=== PATIENT | male | born 1980 | race Caucasian/White ===

== ENCOUNTER 2024-10-10 12:57 | Inpatient (IN) | payer BC, OTHER ==
[2024-10-10] MEDS ORDERED: Acetaminophen 650 MG Suppository PR PRN (17:28)
[2024-10-10] MEDS ORDERED: Acetaminophen 325 MG TAB PO PRN (17:28)
[2024-10-10] MEDS ORDERED: Nitroglycerin 0.4 MG TAB (25 Tab Bottle) SL PRN (17:29)
[2024-10-10] MEDS ORDERED: Communication Order-Pharmacy FS SCH (17:33)
[2024-10-10] MEDS ORDERED: Ondansetron ODT 4 MG TAB PO PRN (18:35)
[2024-10-10] MEDS ORDERED: Lorazepam 2 MG/ML VIAL IM PRN (18:35)
[2024-10-10] MEDS ORDERED: Lorazepam 1 MG TAB PO PRN (18:35)
[2024-10-10] MEDS ORDERED: Electrolyte Replacement Protocol FS SCH (18:45)
[2024-10-10 19:00] LABS: Hematocrit 43.8 % (42.0-52.0); Hemoglobin 15.6 g/dL (14.0-18.0); Platelet Count 212 10x3/uL (130-400)
[2024-10-10 19:19] LABS: Magnesium 1.9 mg/dL (1.6-2.6)
[2024-10-10 19:24] LABS: Acetaminophen Less than 10 mcg/mL (Less than 10); Alcohol Less than 10.0 mg/dL (Less than 10); Salicylate Less than 8.0 mg/dL (Less than 8.0)
[2024-10-10 19:33] LABS: Troponin I 16.829 ng/mL (< 0.028)
[2024-10-10 19:40] VITALS: BMI 36.0
[2024-10-10] MEDS: Magnesium 2 GM/50 ML(in water) 2 GM in Premix 1 BAG IVPB SCH (20:57)
[2024-10-10] MEDS: Nitroglycerin 2% Ointment 1 INCH/1 GM Packet TOP SCH (20:58)
[2024-10-10] MEDS: Thiamine HCl 200 MG/2 ML VIAL SLOW IVP SCH (20:59)
[2024-10-10] MEDS: Enoxaparin 120 MG/0.8 ML SYRINGE SC SCH (20:59)
[2024-10-10] MEDS: Famotidine 20 MG TAB PO SCH (20:59)
[2024-10-10 21:45] LABS: Amphetamine Not Detected (NotDetected); Benzodiazepine Screen Not Detected (NotDetected); Cocaine Metabolite Screen Not Detected (NotDetected); Methadone Not Detected (NotDetected); Methamphetamine Not Detected (NotDetected); Opiate Screen Not Detected (NotDetected); Phencyclidine (PCP) Not Detected (NotDetected); THC/Cannabinoid Screen Not Detected (NotDetected); Tricyclic Screen Not Detected (NotDetected)
[2024-10-10 21:46] LABS: Barbiturates Screen Not Detected (NotDetected); Oxycodone Screen Not Detected (NotDetected)
[2024-10-10 22:42] LABS: Critical Call Chem Troponin I RESULT DECREASING; Troponin I 10.079 ng/mL (< 0.028)
[2024-10-11 04:07] LABS: #Basophils 0.05 10x3/uL (0.0-0.2); %Basophils 0.6 % (0.0-1.0); %Eosinophils 4.8 % (0.0-10.0); %Lymphocytes 32.2 % (21.0-51.0); %Monocytes 9.3 % (0.0-10.0); %Neutrophils 52.7 % (42.0-75.0); Hematocrit 42.9 % (42.0-52.0); Hemoglobin 14.9 g/dL (14.0-18.0); Mean Corpuscular HGB CONC 34.7 g/dL (32.0-36.0); Mean Corpuscular Hemoglobin 30.7 pg (27.0-31.0); Mean Corpuscular Volume 88.5 fL (78.0-98.0); Mean Platelet Volume 9.9 fL (7.4-10.4); Platelet Count 191 10x3/uL (130-400); RBC Distribution Width 12.5 % (11.5-14.5); Red Blood Cell (RBC) Count 4.85 mill/uL (4.70-6.10)
[2024-10-11 04:32] LABS: Hemoglobin A1c 5.4 % (4.0-6.0)
[2024-10-11 04:34] LABS: Anion Gap 11 mmol/L (10-20); BUN (Urea Nitrogen) 12 mg/dL (8.9-20.6); Calc. Creatinine Clearance 178 mL/min (70-130); Calcium 8.5 mg/dL (7.8-10.44); Carbon Dioxide 27 mmol/L (22-29); Cardiac Risk 7.5 (Less than 4.5); Chloride 102 mmol/L (98-107); Cholesterol 218 mg/dl (< 200 Desired); Estimated GFR 110; Glucose 103 mg/dL (70-105); HDL Cholesterol 29 mg/dL (>60 Neg Risk); Potassium 4.1 mmol/L (3.5-5.1); Sodium 136 mmol/L (136-145); Triglycerides 416 mg/dL (Less than 150)
[2024-10-11 04:37] LABS: Critical Call Chem Troponin I RESULT DECREASING
[2024-10-11] MEDS ORDERED: Heparin 10,000 UNITS/ 10 ML VIAL ONE (07:31)
[2024-10-11] MEDS ORDERED: Verapamil 5 MG/2 ML VIAL ONE (07:31)
[2024-10-11] MEDS ORDERED: Lidocaine 1% (PF) 30 ML VIAL ONE (07:31)
[2024-10-11] MEDS ORDERED: Nitroglycerin 50 MG/250 ML BOT 250 ML ONE (07:32)
[2024-10-11] MEDS ORDERED: Communication Order-Pharmacy FS SCH (08:00)
[2024-10-11] MEDS: Folic Acid 1 MG TAB PO SCH (08:12)
[2024-10-11] MEDS: Sertraline 100 MG TAB PO SCH (08:12)
[2024-10-11] MEDS: Multivit, Therapeutic 1 TAB PO SCH (08:12)
[2024-10-11] MEDS: Aspirin Chewable 81 MG TAB PO SCH (08:12)
[2024-10-11] MEDS ORDERED: Midazolam HCl 2 mg/2 ml Vial ONE (08:31)
[2024-10-11] MEDS ORDERED: fentaNYL 50 mcg/mL 1 mL Vial ONE ×2 (08:31→08:58)
[2024-10-11] MEDS ORDERED: Iopamidol 370 76% 100 ML VIAL ONE (08:43)
[2024-10-11] MEDS ORDERED: Nitroglycerin 0.4 MG TAB (25 Tab Bottle) SL PRN (09:46)
[2024-10-11] MEDS ORDERED: Sodium Chloride 0.9% 200 ML IV PRN (09:46)
[2024-10-11] MEDS ORDERED: Acetaminophen/Codeine 30-300mg Tablet PO PRN ×2 (09:46)
[2024-10-11 10:29] LABS: Hematocrit 42.4 % (42.0-52.0); Platelet Count 181 10x3/uL (130-400)
[2024-10-11] MEDS: Metoprolol Tartrate 25 MG TAB PO SCH (11:04)
[2024-10-11] MEDS: Heparin 10,000 UNITS/ 10 ML VIAL SLOW IVP SCH (14:40)
[2024-10-11] MEDS: Heparin 25,000 units/D5W 500 ML IVPB SCH (14:41)
[2024-10-11] MEDS ORDERED: Lorazepam 1 MG TAB PO PRN (18:35)
[2024-10-11] MEDS: Atorvastatin Calcium 40 MG TAB PO SCH (20:21)
[2024-10-12 04:46] LABS: #Basophils 0.05 10x3/uL (0.0-0.2); %Basophils 0.7 % (0.0-1.0); %Eosinophils 5.2 % (0.0-10.0); %Lymphocytes 31.7 % (21.0-51.0); %Monocytes 8.9 % (0.0-10.0); %Neutrophils 53.2 % (42.0-75.0); Anion Gap 9 mmol/L (10-20); BUN (Urea Nitrogen) 10 mg/dL (8.9-20.6); Calc. Creatinine Clearance 196 mL/min (70-130); Calcium 8.5 mg/dL (7.8-10.44); Carbon Dioxide 26 mmol/L (22-29); Chloride 107 mmol/L (98-107); Estimated GFR 114; Glucose 94 mg/dL (70-105); Hematocrit 42.9 % (42.0-52.0); Hemoglobin 14.7 g/dL (14.0-18.0); Magnesium 2.2 mg/dL (1.6-2.6); Mean Corpuscular HGB CONC 34.3 g/dL (32.0-36.0); Mean Corpuscular Hemoglobin 30.6 pg (27.0-31.0); Mean Corpuscular Volume 89.2 fL (78.0-98.0); Phosphorus 2.5 mg/dL (2.3-4.7); Platelet Count 179 10x3/uL (130-400); Potassium 3.8 mmol/L (3.5-5.1); RBC Distribution Width 12.6 % (11.5-14.5); Red Blood Cell (RBC) Count 4.81 mill/uL (4.70-6.10); Sodium 138 mmol/L (136-145)
[2024-10-12] MEDS: Ezetimibe 10 MG TAB PO SCH (08:53)
[2024-10-12] MEDS ORDERED: Electrolyte Replacement Protocol FS PRN (11:15)
[2024-10-12] MEDS: Senokot 8.6 MG TAB PO SCH (17:57)
[2024-10-12] MEDS ORDERED: Lorazepam 1 MG TAB PO PRN (18:35)
[2024-10-12] MEDS: Ciprofloxacin 0.2% Otic (0.25ML CONTAINER) R EAR SCH (21:13)
[2024-10-13 04:35] LABS: #Basophils 0.05 10x3/uL (0.0-0.2); %Basophils 0.7 % (0.0-1.0); %Eosinophils 5.6 % (0.0-10.0); %Monocytes 10.1 % (0.0-10.0); %Neutrophils 47.3 % (42.0-75.0); Hematocrit 40.9 % (42.0-52.0); Hemoglobin 13.9 g/dL (14.0-18.0); Mean Corpuscular Hemoglobin 30.4 pg (27.0-31.0); Mean Corpuscular Volume 89.5 fL (78.0-98.0); Platelet Count 184 10x3/uL (130-400); RBC Distribution Width 12.3 % (11.5-14.5); Red Blood Cell (RBC) Count 4.57 mill/uL (4.70-6.10)
[2024-10-13 05:00] LABS: Anion Gap 12 mmol/L (10-20); BUN (Urea Nitrogen) 13 mg/dL (8.9-20.6); Calc. Creatinine Clearance 169 mL/min (70-130); Calcium 8.6 mg/dL (7.8-10.44); Carbon Dioxide 23 mmol/L (22-29); Chloride 107 mmol/L (98-107); Estimated GFR 107; Glucose 105 mg/dL (70-105); Phosphorus 4.2 mg/dL (2.3-4.7); Sodium 138 mmol/L (136-145)
[2024-10-13] MEDS ORDERED: Magnesium 2 GM/50 ML(in water) 2 GM in Premix 1 BAG IVPB SCH (08:00)
[2024-10-13] MEDS: guaiFENesin/DM ER PO SCH (09:22)
[2024-10-13 09:56] LABS: Hematocrit 41.2 % (42.0-52.0); Hemoglobin 14.5 g/dL (14.0-18.0); Platelet Count 183 10x3/uL (130-400)
[2024-10-13] MEDS: Thiamine 100 MG TAB PO SCH (21:31)
[2024-10-13] MEDS: Lorazepam 0.5 MG TAB PO PRN (21:31)
[2024-10-14 03:36] LABS: #Basophils 0.05 10x3/uL (0.0-0.2); %Basophils 0.7 % (0.0-1.0); %Eosinophils 4.3 % (0.0-10.0); %Lymphocytes 26.4 % (21.0-51.0); %Monocytes 9.1 % (0.0-10.0); %Neutrophils 59.2 % (42.0-75.0); Hematocrit 42.2 % (42.0-52.0); Hemoglobin 14.5 g/dL (14.0-18.0); Mean Corpuscular HGB CONC 34.4 g/dL (32.0-36.0); Mean Corpuscular Hemoglobin 30.8 pg (27.0-31.0); Mean Corpuscular Volume 89.6 fL (78.0-98.0); Mean Platelet Volume 9.9 fL (7.4-10.4); Platelet Count 181 10x3/uL (130-400); RBC Distribution Width 12.3 % (11.5-14.5); Red Blood Cell (RBC) Count 4.71 mill/uL (4.70-6.10)
[2024-10-14 03:52] LABS: Anion Gap 12 mmol/L (10-20); BUN (Urea Nitrogen) 11 mg/dL (8.9-20.6); Calc. Creatinine Clearance 170 mL/min (70-130); Calcium 8.9 mg/dL (7.8-10.44); Carbon Dioxide 26 mmol/L (22-29); Chloride 106 mmol/L (98-107); Estimated GFR 108; Glucose 98 mg/dL (70-105); Phosphorus 3.7 mg/dL (2.3-4.7); Potassium 4.1 mmol/L (3.5-5.1); Sodium 140 mmol/L (136-145)
[2024-10-14] MEDS ORDERED: Midazolam HCl 2 mg/2 ml Vial ONE ×4 (06:21→12:56)
[2024-10-14] MEDS ORDERED: Fentanyl 250 MCG/5 ML VIAL ONE ×2 (06:22→08:15)
[2024-10-14] MEDS ORDERED: Vecuronium 10 MG VIAL ONE ×2 (06:29→10:25)
[2024-10-14] MEDS ORDERED: Aminocaproic Acid 5 GM/20 ML VIAL ONE ×2 (06:29→07:47)
[2024-10-14] MEDS ORDERED: PROPOFOL 20 ML ONE (06:34)
[2024-10-14] MEDS ORDERED: Bupivacaine PF 0.5% 30 ML VIAL ONE (06:35)
[2024-10-14] MEDS ORDERED: EPINEPHrine 1 MG/ML VIAL ONE (06:35)
[2024-10-14] MEDS ORDERED: Albumin 5% 500 ML ONE (06:35)
[2024-10-14] MEDS ORDERED: PHENYLEPHRINE-NS 100 MCG/ML 10 ML SYRINGE ONE ×2 (06:35)
[2024-10-14] MEDS ORDERED: Papaverine 60 MG/2 ML VIAL ONE ×2 (06:52→07:47)
[2024-10-14] MEDS ORDERED: Heparin 10,000 UNITS/1 ML VIAL 30,000 UNITS in Sodium Chloride 0.9% 1,000 ML FS SCH (07:00)
[2024-10-14] MEDS ORDERED: Lidocaine 1% MPF 2 ML VIAL ONE (07:11)
[2024-10-14] MEDS ORDERED: Lidocaine 2% PF 100 mg/5 ml Syringe ONE (07:47)
[2024-10-14] MEDS ORDERED: Heparin 5,000 UNITS/ML VIAL ONE (07:47)
[2024-10-14] MEDS ORDERED: Potassium Chloride 60 mEq (30 mL) VIAL ONE (07:47)
[2024-10-14] MEDS ORDERED: Esmolol 100 MG/10 ML VIAL ONE (07:47)
[2024-10-14] MEDS ORDERED: Nitroglycerin 50 MG/250 ML BOT ONE (07:47)
[2024-10-14] MEDS ORDERED: Thrombin 5000 UNITS/5 ML VIAL ONE (07:47)
[2024-10-14] MEDS ORDERED: Magnesium 5 GM/10 ML VIAL ONE (07:47)
[2024-10-14] MEDS ORDERED: Mannitol 12.5 GM/50 ML ONE (07:47)
[2024-10-14] MEDS ORDERED: Vancomycin 1 GM VIAL ONE (07:47)
[2024-10-14] MEDS ORDERED: Cardioplegic Soln 1,000 ML BAG ONE (07:47)
[2024-10-14] MEDS ORDERED: Calcium Chloride 1 GM/10 ML Abboject SYRINGE ONE ×2 (07:47→11:36)
[2024-10-14] MEDS ORDERED: Heparin 30,000 units/30 ml VIAL ONE (07:47)
[2024-10-14] MEDS ORDERED: Sodium Bicarb 50 mEq/50 ML VIAL ONE (07:47)
[2024-10-14] MEDS ORDERED: Protamine Sulfate 250 MG/25 ML VIAL ONE (07:47)
[2024-10-14] MEDS ORDERED: CEFAZOLIN 1 GM VIAL ONE (08:00)
[2024-10-14] MEDS ORDERED: ePHEDrine Sulfate 50 MG/10 ML VIAL ONE (08:32)
[2024-10-14] MEDS: Magnesium 2 GM/50 ML(in water) 2 GM in Premix 1 BAG IVPB SCH ×2 (10:37→14:31)
[2024-10-14] MEDS ORDERED: EPINEPHrine 1 MG/10 ML Abboject SYRINGE ONE (11:36)
[2024-10-14] MEDS ORDERED: Nitroglycerin 50 MG/250 ML BOT 250 ML IVPB PRN (13:27)
[2024-10-14] MEDS ORDERED: Promethazine HCl 25 MG/ML VIAL IM PRN (13:27)
[2024-10-14] MEDS ORDERED: Bisacodyl 5 MG TAB PO PRN (13:27)
[2024-10-14] MEDS ORDERED: Guaifenesin DM 100-10/5 ML UDCUP PO PRN (13:27)
[2024-10-14] MEDS ORDERED: hydrALAZINE 20 MG/ML VIAL SLOW IVP PRN (13:27)
[2024-10-14] MEDS ORDERED: niCARdipine 25 MG in Sodium Chloride 0.9% 250 ML 250 ML IVPB PRN (13:27)
[2024-10-14] MEDS ORDERED: Mag-Al 1200 mg/1200 mg/30 ML UDCUP PO PRN (13:27)
[2024-10-14] MEDS ORDERED: Phenylephrine 40 MG/NS 250 ML 250 ML IVPB PRN (13:27)
[2024-10-14] MEDS ORDERED: fentaNYL 50 mcg/mL 1 mL Vial SLOW IVP PRN (13:27)
[2024-10-14] MEDS ORDERED: Albumin 5% 12.5 GM (250 mL) BOT IVPB PRN ×2 (13:27)
[2024-10-14] MEDS ORDERED: Bisacodyl 10 MG SUPP PR PRN (13:27)
[2024-10-14] MEDS ORDERED: Electrolyte Replacement Protocol 1 EACH FS SCH (13:30)
[2024-10-14 14:04] LABS: Actual Bicarbonate (HCO3a) 21.5 mEq/L (22-28); Base Excess (BEa) -4.6 mEq/L (-2.0 to +3.0); CO2 Tension 43.3 mmHg (35.0-45.0); Calcium, Ionized (arterial) 1.21 mmol/L (1.12-1.30); Hematocrit-ABG 44 % (42.0-52.0); Hemoglobin (Hb) 14.9 g/dL (14.0-18.0); Potassium - ABG Lab 4.72 mmol/L (3.70-5.30); pH, Arterial 7.313 (7.35-7.45)
[2024-10-14 14:06] LABS: ALV-art Gradient 261.675 mmHg (0-20); Puncture Site Arterial Line
[2024-10-14] MEDS: fentaNYL 50 mcg/mL 1 mL Vial SLOW IVP PRN (14:15)
[2024-10-14] MEDS: Insulin Regular, Human 100 UNIT/ML 10 ML VIAL SC PRN (14:16)
[2024-10-14 14:28] LABS: #Basophils 0.06 10x3/uL (0.0-0.2); %Basophils 0.4 % (0.0-1.0); %Eosinophils 0.2 % (0.0-10.0); %Lymphocytes 7.9 % (21.0-51.0); %Monocytes 7.9 % (0.0-10.0); %Neutrophils 82.4 % (42.0-75.0); Hematocrit 41.2 % (42.0-52.0); Hemoglobin 14.3 g/dL (14.0-18.0); Mean Corpuscular HGB CONC 34.7 g/dL (32.0-36.0); Mean Corpuscular Hemoglobin 30.8 pg (27.0-31.0); Mean Corpuscular Volume 88.8 fL (78.0-98.0); Mean Platelet Volume 9.9 fL (7.4-10.4); Platelet Count 135 10x3/uL (130-400); RBC Distribution Width 12.5 % (11.5-14.5); Red Blood Cell (RBC) Count 4.64 mill/uL (4.70-6.10)
[2024-10-14] MEDS ORDERED: Dextrose 5% in Water 1,000 ML IV PRN (14:30)
[2024-10-14] MEDS ORDERED: Dextrose 50% Abboject 50 ML SYRINGE SLOW IVP PRN (14:30)
[2024-10-14] MEDS ORDERED: INSULIN REGULAR IN 0.9 % NACL 100 UNITS in Premix 1 BAG IVPB SCH (14:30)
[2024-10-14] MEDS ORDERED: Electrolyte Replacement Protocol FS PRN (14:30)
[2024-10-14] MEDS ORDERED: Glucagon 1 MG/ML KIT SC PRN (14:30)
[2024-10-14] MEDS: fentaNYL 50 mcg/mL 1 mL Vial ONE (14:31)
[2024-10-14] MEDS: Insulin Regular, Human 100 UNIT/ML 10 ML VIAL ONE (14:31)
[2024-10-14] MEDS: CEFAZOLIN 2 GM in Sodium Chloride 0.9% 100 ML IVPB SCH (14:32)
[2024-10-14] MEDS: Post-Op Insulin Drip Protocol IVPB ONE (14:34)
[2024-10-14 14:35] LABS: Anion Gap 13 mmol/L (10-20); BUN (Urea Nitrogen) 13 mg/dL (8.9-20.6); Calc. Creatinine Clearance 162 mL/min (70-130); Calcium 8.8 mg/dL (7.8-10.44); Carbon Dioxide 23 mmol/L (22-29); Chloride 111 mmol/L (98-107); Estimated GFR 101; Glucose 139 mg/dL (70-105); Potassium 4.8 mmol/L (3.5-5.1); Sodium 142 mmol/L (136-145)
[2024-10-14 14:36] LABS: INR-International Normal Ratio 1.2; Prothrombin Time 15.2 sec (12.0-14.7)
[2024-10-14 14:38] LABS: PTT 25.5 sec (22.9-36.1)
[2024-10-14] MEDS: NS 0.9% w/ 20 MEQ KCL 1,000 ML IV SCH (14:45)
[2024-10-14] MEDS: Morphine 2 MG/ML VIAL SLOW IVP PRN (14:45)
[2024-10-14] MEDS: NOREPINEPHRINE 8 MG/250 ML-D5W 250 ML IVPB PRN (15:34)
[2024-10-14 15:41] LABS: Actual Bicarbonate (HCO3a) 19.3 mEq/L (22-28); Base Excess (BEa) -5.7 mEq/L (-2.0 to +3.0); CO2 Tension 36.4 mmHg (35.0-45.0); Calcium, Ionized (arterial) 1.14 mmol/L (1.12-1.30); Hematocrit-ABG 42 % (42.0-52.0); Hemoglobin (Hb) 14.3 g/dL (14.0-18.0); O2 Tension (PaO2), arterial 103.5 mmHg (80.0-100.0); Potassium - ABG Lab 4.51 mmol/L (3.70-5.30); pH, Arterial 7.342 (7.35-7.45)
[2024-10-14 15:47] LABS: Puncture Site Arterial Line
[2024-10-14] MEDS: Sodium Bicarb 50 MEQ/50 ML Abboject 8.4% SYRINGE ONE (16:04)
[2024-10-14] MEDS: Sodium Bicarb 50 MEQ/50 ML Abboject 8.4% SYRINGE IVP SCH (16:10)
[2024-10-14] MEDS: Ondansetron PF 4 MG/2 ML Vial IVP PRN (16:13)
[2024-10-14] MEDS: traMADol HCl 50 MG TAB PO PRN (16:59)
[2024-10-14] MEDS: Lidocaine 4% Patch TD SCH (18:30)
[2024-10-14] MEDS: Ipratropium/Albuterol 3 ML NEB NEB SCH (18:56)
[2024-10-14] MEDS: Famotidine/PF 20 mg/2ml Vial SLOW IVP SCH (19:09)
[2024-10-14] MEDS: Atorvastatin Calcium 40 MG TAB PO SCH (19:09)
[2024-10-14] MEDS ORDERED: HYDROcodone/Acetaminophen 5/325 mg Tablet PO PRN (19:39)
[2024-10-14] MEDS: HYDROcodone/Acetaminophen 5/325 mg Tablet PO PRN (19:49)
[2024-10-14 20:32] LABS: Hematocrit 40.8 % (42.0-52.0); Hemoglobin 14.2 g/dL (14.0-18.0)
[2024-10-14 20:40] LABS: Potassium 4.6 mmol/L (3.5-5.1)
[2024-10-14] MEDS ORDERED: Atorvastatin Calcium 10 MG TAB PO SCH (21:00)
[2024-10-15 04:19] LABS: #Basophils Less than 0.03 10x3/uL (0.0-0.2); #Eosinophils Less than 0.03 10x3/uL (0.0-0.7); %Basophils 0.2 % (0.0-1.0); %Eosinophils 0.1 % (0.0-10.0); %Lymphocytes 10.4 % (21.0-51.0); %Monocytes 9.9 % (0.0-10.0); %Neutrophils 78.7 % (42.0-75.0); Hematocrit 38.5 % (42.0-52.0); Hemoglobin 13.3 g/dL (14.0-18.0); Mean Corpuscular HGB CONC 34.5 g/dL (32.0-36.0); Mean Corpuscular Hemoglobin 30.9 pg (27.0-31.0); Mean Corpuscular Volume 89.3 fL (78.0-98.0); Mean Platelet Volume 10.2 fL (7.4-10.4); Platelet Count 152 10x3/uL (130-400); RBC Distribution Width 12.8 % (11.5-14.5); Red Blood Cell (RBC) Count 4.31 mill/uL (4.70-6.10)
[2024-10-15 04:39] LABS: Anion Gap 16 mmol/L (10-20); BUN (Urea Nitrogen) 13 mg/dL (8.9-20.6); Calc. Creatinine Clearance 197 mL/min (70-130); Calcium 7.8 mg/dL (7.8-10.44); Carbon Dioxide 24 mmol/L (22-29); Chloride 109 mmol/L (98-107); Estimated GFR 113; Glucose 132 mg/dL (70-105); Magnesium 2.2 mg/dL (1.6-2.6); Potassium 4.5 mmol/L (3.5-5.1); Sodium 144 mmol/L (136-145)
[2024-10-15] MEDS: Transdermal Patch Removal TOP SCH (05:25)
[2024-10-15] MEDS ORDERED: Artificial Tear Ophth Sol 15 ML BOT EA EYE PRN (06:52)
[2024-10-15] MEDS ORDERED: Mineral Oil ENEMA PR PRN (06:52)
[2024-10-15] MEDS: Ketorolac Tromethamine 30 MG (1 mL) VIAL IVP SCH (08:07)
[2024-10-15] MEDS: Magnesium 2 GM/50 ML(in water) 2 GM in Premix 1 BAG IVPB SCH (08:09)
[2024-10-15] MEDS: Senokot S 8.6-50 MG TAB PO SCH (08:10)
[2024-10-15] MEDS: Famotidine 20 MG TAB PO SCH (08:11)
[2024-10-15] MEDS: Metoprolol Tartrate 25 MG TAB PO SCH (08:11)
[2024-10-15] MEDS: Heparin 5,000 UNITS/ML VIAL SC SCH (08:45)
[2024-10-15] MEDS: Aspirin 81 mg Enteric Coated Tablet PO SCH (09:45)
[2024-10-15 10:10] LABS: Hematocrit 39.5 % (42.0-52.0); Hemoglobin 13.3 g/dL (14.0-18.0); Platelet Count 156 10x3/uL (130-400)
[2024-10-15] MEDS ORDERED: Insulin Glargine 30 UNITS/0.3 ML VIAL SC PRN (14:21)
[2024-10-15] MEDS ORDERED: Nitroglycerin 0.4 MG TAB (25 Tab Bottle) SL PRN (16:10)
[2024-10-15] MEDS: diphenhydrAMINE 25 MG CAP PO PRN (20:23)
[2024-10-16 04:23] LABS: #Basophils 0.04 10x3/uL (0.0-0.2); %Basophils 0.4 % (0.0-1.0); %Eosinophils 0.9 % (0.0-10.0); %Lymphocytes 12.5 % (21.0-51.0); %Monocytes 9.8 % (0.0-10.0); %Neutrophils 75.7 % (42.0-75.0); Hematocrit 32.4 % (42.0-52.0); Mean Corpuscular Hemoglobin 30.9 pg (27.0-31.0); Mean Platelet Volume 9.9 fL (7.4-10.4); Platelet Count 130 10x3/uL (130-400); RBC Distribution Width 12.8 % (11.5-14.5); Red Blood Cell (RBC) Count 3.56 mill/uL (4.70-6.10)
[2024-10-16 04:48] LABS: Anion Gap 10 mmol/L (10-20); BUN (Urea Nitrogen) 21 mg/dL (8.9-20.6); Calc. Creatinine Clearance 146 mL/min (70-130); Calcium 8.1 mg/dL (7.8-10.44); Carbon Dioxide 28 mmol/L (22-29); Chloride 103 mmol/L (98-107); Estimated GFR 88; Glucose 122 mg/dL (70-105); Magnesium 2.5 mg/dL (1.6-2.6); Phosphorus 3.1 mg/dL (2.3-4.7); Sodium 137 mmol/L (136-145)
[2024-10-16] MEDS: Potassium Chloride 20 MEQ (100 mL) BAG IVPB PRN (05:43)
[2024-10-16] MEDS: Furosemide 20 MG TAB PO SCH (10:36)
[2024-10-17] MEDS: traMADol HCl 50 MG TAB PO PRN (03:52)
[2024-10-17 06:45] LABS: #Basophils 0.04 10x3/uL (0.0-0.2); %Basophils 0.4 % (0.0-1.0); %Eosinophils 1.3 % (0.0-10.0); %Lymphocytes 14.9 % (21.0-51.0); %Monocytes 8.9 % (0.0-10.0); Hematocrit 30.4 % (42.0-52.0); Hemoglobin 10.3 g/dL (14.0-18.0); Mean Corpuscular HGB CONC 33.9 g/dL (32.0-36.0); Mean Corpuscular Volume 91.6 fL (78.0-98.0); Mean Platelet Volume 9.8 fL (7.4-10.4); Platelet Count 153 10x3/uL (130-400); RBC Distribution Width 12.7 % (11.5-14.5); Red Blood Cell (RBC) Count 3.32 mill/uL (4.70-6.10)
[2024-10-17 06:59] LABS: Calc. Creatinine Clearance 181 mL/min (70-130); Estimated GFR 110
[2024-10-17 07:00] LABS: Anion Gap 9 mmol/L (10-20); BUN (Urea Nitrogen) 16 mg/dL (8.9-20.6); Calcium 8.4 mg/dL (7.8-10.44); Carbon Dioxide 29 mmol/L (22-29); Chloride 101 mmol/L (98-107); Glucose 103 mg/dL (70-105); Potassium 3.7 mmol/L (3.5-5.1); Sodium 135 mmol/L (136-145)
[2024-10-17] MEDS ORDERED: HYDROcodone/Acetaminophen 5/325 mg Tablet PO PRN ×2 (07:18→22:05)
[2024-10-17] MEDS ORDERED: Amlodipine 10 MG TAB PO SCH (09:00)
[2024-10-17] MEDS: Ezetimibe 10 MG TAB PO SCH (09:06)
[2024-10-17] MEDS: Metoprolol Succinate XL 50 MG ER.TAB PO SCH (09:07)
[2024-10-17] MEDS: Amlodipine 5 MG TAB PO SCH (09:07)
[2024-10-17] MEDS: HYDROcodone/Acetaminophen 5/325 mg Tablet PO SCH (10:38)
[2024-10-17] MEDS: Atorvastatin Calcium 40 MG TAB PO SCH (20:22)
[2024-10-18] MEDS: HYDROcodone/Acetaminophen 5/325 mg Tablet PO PRN (03:14)
[2024-10-18 04:19] LABS: #Basophils 0.05 10x3/uL (0.0-0.2); %Basophils 0.7 % (0.0-1.0); %Lymphocytes 21.1 % (21.0-51.0); %Monocytes 9.2 % (0.0-10.0); %Neutrophils 63.5 % (42.0-75.0); Hematocrit 29.9 % (42.0-52.0); Hemoglobin 10.2 g/dL (14.0-18.0); Mean Corpuscular HGB CONC 34.1 g/dL (32.0-36.0); Mean Corpuscular Hemoglobin 30.9 pg (27.0-31.0); Mean Corpuscular Volume 90.6 fL (78.0-98.0); Mean Platelet Volume 9.5 fL (7.4-10.4); Platelet Count 210 10x3/uL (130-400); RBC Distribution Width 12.5 % (11.5-14.5)
[2024-10-18 04:36] LABS: ALT (SGPT) 19 U/L (8-55); AST (SGOT) 24 U/L (5-34); Alkaline Phosphatase 60 U/L (40-110); Anion Gap 10 mmol/L (10-20); BUN (Urea Nitrogen) 10 mg/dL (8.9-20.6); Bilirubin, Total 0.5 mg/dL (0.2-1.2); Calc. Creatinine Clearance 207 mL/min (70-130); Calcium 8.6 mg/dL (7.8-10.44); Carbon Dioxide 28 mmol/L (22-29); Chloride 99 mmol/L (98-107); Estimated GFR 116; Globulin 3.6 g/dL (2.4-3.5); Glucose 100 mg/dL (70-105); Magnesium 2.1 mg/dL (1.6-2.6); Potassium 3.3 mmol/L (3.5-5.1); Protein, Total 6.6 g/dL (6.0-8.3); Sodium 134 mmol/L (136-145)
[2024-10-18] MEDS: Potassium Chloride 20 MEQ TAB PO SCH ×2 (05:52→08:48)
[2024-10-18 08:21] VITALS: BP 111/69; TEMP 98
[2024-10-18] MEDS: Furosemide 20 MG TAB PO SCH (08:49)
[2024-10-18 12:36] VITALS: BMI 36.6
== END 2024-10-18 13:25 | disposition home or self-care (01) | DRG 234 ==
LOC: 2NO 15:56 → CCU 10-14 08:00 → PCU 10-16 10:01
PROVIDERS: ADMIT Internal Medicine; ATTEND Internal Medicine
PROC: 02100Z9 Bypass Coronary Artery, One Artery from Left Internal Mammary, Open Approach (ICD-10-PCS; 2024-10-10)
PROC: 02120AW Bypass Coronary Artery, Three Arteries from Aorta with Autologous Arterial Tissue, Open Approach (ICD-10-PCS; 2024-10-10)
PROC: 06BQ4ZZ Excision of Left Saphenous Vein, Percutaneous Endoscopic Approach (ICD-10-PCS; 2024-10-10)
PROC: 5A1221Z Performance of Cardiac Output, Continuous (ICD-10-PCS; 2024-10-10)
PROC: 4A023N7 Measurement of Cardiac Sampling and Pressure, Left Heart, Percutaneous Approach (ICD-10-PCS; principal; 2024-10-11)
PROC: B2111ZZ Fluoroscopy of Multiple Coronary Arteries using Low Osmolar Contrast (ICD-10-PCS; 2024-10-11)
PROC: 4A133R1 Monitoring of Arterial Saturation, Peripheral, Percutaneous Approach (ICD-10-PCS; 2024-10-14)
PROC: 30233J1 Transfusion of Nonautologous Serum Albumin into Peripheral Vein, Percutaneous Approach (ICD-10-PCS; 2024-10-14)
DX: I21.4 Non-ST elevation (NSTEMI) myocardial infarction (principal); I10 Essential (primary) hypertension; F41.9 Anxiety disorder, unspecified; G47.33 Obstructive sleep apnea (adult) (pediatric); F43.10 Post-traumatic stress disorder, unspecified; F10.90 Alcohol use, unspecified, uncomplicated; E66.9 Obesity, unspecified; E78.00 Pure hypercholesterolemia, unspecified; H60.91 Unspecified otitis externa, right ear; I25.110 Atherosclerotic heart disease of native coronary artery with unstable angina pectoris; E11.9 Type 2 diabetes mellitus without complications; Z82.49 Family history of ischemic heart disease and other diseases of the circulatory system; Z68.36 Body mass index [BMI] 36.0-36.9, adult
CPT/HCPCS: 36415; 36416; 71045; 80048; 80053; 80061; 80306; 80307; 82805; 83036; 83735; 84100; 84443; 84484; 85025; 85610; 85730; 86850; 86900; 86901; 93005; 93010; 93306; 93458; 93798; 94002; 94150; 94640; 94760; 97139; 99152; 99153; A4311; A4648; C1751; C1769; C1776; C1874; C1887; C1889; C1894; J0171; J0665; J0690; J1642; J1644; J1815; J1885; J2003; J2150; J2250; J2272; J2405; J2440; J2704; J2720; J3010; J3370; J3411; J3475; J3480; J3490; J7620; P9045; Q9967; S0017